=== PATIENT | male | born 1975 | race Hispanic/Latino ===

== ENCOUNTER 2021-12-26 12:54 | Emergency (ER) | payer OTHER, SELFPAY ==
[2021-12-26 13:43] LABS: Actual Bicarbonate (HCO3v) 26 mEq/L (22-28); Base Excess 0.9 mEq/L (-2.0 to +3.0); Calcium, Ionized (venous) 1.16 mmol/L (1.16-1.32); Chloride (VBG) 103 mmol/L (98-106); Hemoglobin (Hb) 13.8 g/dL (13.1-17.2); Potassium (VBG) 3.91 mmol/L (3.70-5.30); Puncture Site Other Site; RapidComm Collect By CBN; Sodium 135.5 mmol/L (133-146)
[2021-12-26 13:48] LABS: #Basophils 0.1 10x3/uL (0.0-0.2); #Eosinphils 0.2 10x3/uL (0.0-0.5); #Monocytes 0.8 10x3/uL (0.0-1.1); #Neutrophils 4.8 10x3/uL (1.5-8.4); %Basophils 0.8 % (0.0-2.0); %Eosinophils 2.8 % (0.0-6.0); %Lymphocytes 29.7 % (18.0-47.0); %Monocytes 9.9 % (0.0-10.0); %Neutrophils 56.4 % (40.0-75.0); Hemoglobin 13.1 g/dL (13.5-17.5); Mean Corpuscular Hemoglobin 29.6 pg (27.0-33.0); Mean Corpuscular Volume 89.6 fl (81.2-95.1); Platelet Count 336 10x3/uL (150-450); RBC Distribution Width 13.1 % (11.5-14.5); Red Blood Cell (RBC) Count 4.43 10x6/uL (4.32-5.72); White Blood Cell (WBC) Count 8.5 10x3/uL (3.5-10.5)
[2021-12-26 14:09] LABS: ALT (SGPT) 29 U/L (8-55); AST (SGOT) 21 U/L (5-34); Albumin 4.2 g/dL (3.5-5.0); Alkaline Phosphatase 166 U/L (40-110); Anion Gap 17 mmol/L (10-20); BUN (Urea Nitrogen) 10 mg/dL (8.9-20.6); Bilirubin, Total 0.2 mg/dL (0.2-1.2); CK (CPK) 546 U/L (30-200); Calc. Creatinine Clearance 0 mL/min (70-130); Calcium 9.3 mg/dL (7.8-10.44); Carbon Dioxide 22 mmol/L (22-29); Chloride 105 mmol/L (98-107); Globulin 4.4 g/dL (2.4-3.5); Glucose 136 mg/dL (70-105); Lipase 55 U/L (8-78); Potassium 4.2 mmol/L (3.5-5.1); Protein, Total 8.6 g/dL (6.0-8.3); Sodium 140 mmol/L (136-145)
== END 2021-12-26 15:17 | disposition home or self-care (01) ==
LOC: CSHERS 12:54
DX: G62.9 Polyneuropathy, unspecified (principal); R53.1 Weakness
CPT/HCPCS: 80053; 82550; 82805; 83690; 84484; 85025; 93005

== ENCOUNTER 2022-05-05 07:59 | Outpatient (CLI) | payer OTHER ==
[2022-05-05] MEDS ORDERED: Iopamidol 300 61% 100 ML VIAL FS ONE (14:37)
== END 2022-05-05 08:00 | disposition home or self-care (01) ==
LOC: CSHCT 07:59
PROVIDERS: ATTEND Radiology Radiation Oncology
DX: G96.198 Other disorders of meninges, not elsewhere classified (principal); H54.7 Unspecified visual loss
CPT/HCPCS: 70491; 71260; 74177; Q9967

== ENCOUNTER 2022-05-08 15:09 | Outpatient (CLI) | payer OTHER ==
[~2022-05-08 15:09] MED LIST: Magnevist 469MG/ML 20 ML VIAL ONE
== END 2022-05-08 15:10 | disposition home or self-care (01) ==
LOC: CSHMRI 15:09
PROVIDERS: ATTEND Radiology Radiation Oncology
DX: H53.9 Unspecified visual disturbance (principal); R94.02 Abnormal brain scan
CPT/HCPCS: 70553; A9579